=== PATIENT | male | born 2000 | race Two or more races ===

== ENCOUNTER 2020-10-15 16:43 | Emergency (ER) | payer OTHER ==
[~2020-10-15] VITALS: Ht 182.9 cm; Wt 83.9 kg
[2020-10-15] MEDS ORDERED: MIRTAZAPINE15 MG PO (17:50)
== END 2020-10-15 21:55 | disposition home or self-care (01) ==
LOC: ED 16:43
DX: S00.83XA Contusion of other part of head, initial encounter (principal); S00.511A Abrasion of lip, initial encounter; Y04.8XXA Assault by other bodily force, initial encounter; Z79.899 Other long term (current) drug therapy; Z91.018 Allergy to other foods
CPT/HCPCS: 70450; 70486; 72125; 99284-25